=== PATIENT | female | born 1975 | race Caucasian/White ===

== ENCOUNTER 2023-04-30 08:00 | Emergency (ER) | payer BC, SELFPAY ==
[2023-04-30] MEDS ORDERED: MORPHINE 4 MG/ML SYR ONE (08:28)
[2023-04-30] MEDS ORDERED: ONDANSETRON 4 MG (ODT) TAB ONE (08:29)
--- NOTE | 2023-04-30 08:58 | RAD REPORT ---
EXAM DESCRIPTION: CT - Head C Spine Cap Wo Con - 04/30/2023 8:36 am CLINICAL HISTORY: Trauma, head and neck injury. Chest, abdomen and pelvis pain. TRAUMA COMPARISON: No comparisons TECHNIQUE: CT head without contrast. CT cervical spine without contrast with coronal and sagittal reformatted images. CT chest, abdomen and pelvis without contrast with coronal and sagittal reformatted images of the [facility] ne. All CT scans are performed using dose optimization technique as appropriate and may include automated exposure control or mA/KV adjustment according to patient size. FINDINGS: CT HEAD WITHOUT CONTRAST: No intracranial hemorrhage, hydrocephalus or extra-axial fluid collection. No areas of brain edema o r midline shift. The paranasal sinuses and mastoids are clear. The calvarium is intact. CT CERVICAL SPINE WITHOUT CONTRAST: No fracture or subluxation. Mild lower cervical degenerative changes. The prevertebral soft tissues a re normal in thickness. CT CHEST, ABDOMEN, PELVIS WITHOUT CONTRAST: NOTE: Lack of contrast is a significant limitation in the assessment of trauma related findings. Spec ifically, solid organ, vascular and bowel evaluation is significantly limited. The lungs are clear.No pneumothorax or pericardial/pleural fluid. No evidence of intra-abdominal visceral injury, free fluid or free air is seen within the above detai led limitations. No evidence of pelvic mass or hematoma. Moderate stool throughout the colon. No fractures. Mild lower lumbar degenerative changes. IMPRESSION: Negative for acute traumatic findings within the above detailed limitations.
--- NOTE | 2023-04-30 09:03 | RAD REPORT ---
EXAM DESCRIPTION: RAD - Ankle Right 3 View - 04/30/2023 8:45 am CLINICAL HISTORY: PAIN COMPARISON: No comparisons FINDINGS: Large plantar and tiny posterior calcaneal spur is present. No acute fracture seen.
--- NOTE | 2023-04-30 09:17 | ER ---
Nurse's Notes [facility] Name: Kanchan Phillips Age: 48 yrs Sex: Female : 1975 Arrival Date: 04/30/2023 Time: 08:00 Bed 18 Private MD: Diagnosis: Fall (on) (from) other stairs and steps;Sprain of ankle;Pain in left shoulder;Strain of other muscles, fascia and tendons at shoulder and upper arm level, left arm Presentation: 04/30 08:11 Chief complaint: Patient states: Fell down 12 steps this morning. C/o pain to R ankle/ ss foot. Coronavirus screen: Client denies travel out of the [place] in the last 14 days. Ebola Screen: Patient denies exposure to infectious person. Patient denies travel to an Ebola-affected area in the 21 days before illness onset. Initial Sepsis Screen: Does the patient meet any 2 criteria? No. Patient's initial sepsis screen is negative. Does the patient have a suspected source of infection? No. Patient's initial sepsis screen is negative. Risk Assessment: Do you want to hurt yourself or someone else? Patient reports no desire to harm self or others. Onset of symptoms was April 30, 2023. 08:11 Method Of Arrival: Ambulatory 08:11 Acuity: XIAO 3 ss Historical: - Allergies: 08:14 DPT; ss - Immunization history:: Client reports receiving the 2nd dose of the Covid vaccine. - Social history:: Smoking status: Patient denies any tobacco usage or history of. Screenin:28 [facility] ED Fall Risk Assessment (Adult) History of falling in the last 3 months, ld1 including since admission No falls in past 3 months (0 pts). Abuse screen: Denies threats or abuse. Denies injuries from another. Nutritional screening: No deficits noted. Tuberculosis screening: No symptoms or risk factors identified. Assessment: 09:28 General: Appears in no apparent distress. comfortable, Behavior is calm, cooperative, ld1 appropriate for age. Pain: Complains of pain in right foot and left foot Pain currently is 8 out of 10 on a pain scale. Quality of pain is described as throbbing. Neuro: Level of Consciousness is awake, alert, obeys commands, Oriented to person, place, time, situation. Cardiovascular: Capillary refill < 3 seconds Patient's skin is warm and dry. Respiratory: Airway is patent Respiratory effort is even, unlabored. GI: Abdomen is flat, non-distended. : No signs and/or symptoms were reported regarding the genitourinary system. EENT: No signs and/or symptoms were reported regarding the EENT system. Derm: No signs and/or symptoms reported regarding the dermatologic system. Musculoskeletal: No signs and/or symptoms reported regarding the musculoskeletal system. Vital Signs: 08:11 BP 125 / 76; Pulse 90; Resp 17; Temp 98.2(TE); Pulse Ox 100% on R/A; Weight 72.57 kg; ss Height 5 ft. 6 in. ; Pain 7/10; 09:28 BP 129 / 77; Pulse 74; Resp 18; Pulse Ox 100% on R/A; Pain 5/10; ld1 08:11 Body Mass Index 25.82 (72.57 kg, 167.64 cm) ss 08:11 Pain Scale: Adult ss 09:28 Pain Scale: Adult ld1 ED Course: 08:00 Patient arrived in ED. rg4 08:07 Joel Zuniga DO is Attending Physician. ms3 08:10 Nino Dotson, RN is Primary Nurse. rv 08:10 Ese Fry FNP-C is PHCP. snw 08:14 Triage completed. ss 08:14 Arm band placed on right wrist. ss 08:37 CT Traumagram (Head C Spine CAP wo con) In Process Unspecified. EDMS 08:45 Ankle Right 3 View XRAY In Process Unspecified. EDMS 09:28 Patient has correct armband on for positive identification. Placed in gown. Bed in low ld1 position. Call light in reach. Side rails up X2. Pulse ox on. NIBP on. Door closed. Noise minimized. 09:28 No provider procedures requiring assistance completed. Patient did not have IV access ld1 during this emergency room visit. Administered Medications: 08:23 Drug: morphine IM 4 mg Route: IM; Site: right deltoid; ld1 08:23 Drug: Ondansetron PO 4 mg Route: PO; ld1 09:25 Drug: Diazepam PO 10 mg Route: PO; ld1 Medication: 09:28 VIS not applicable for this client. ld1 Outcome: 09:16 Discharge ordered by . snw 09:28 Discharged to home ambulatory, with family. ld1 09:28 Condition: stable 09:28 Discharge instructions given to patient, family, Instructed on discharge instructions, follow up and referral plans. medication usage, Demonstrated understanding of instructions, follow-up care, medications, Prescriptions given X 2. 09:29 Patient left the ED. ld1 Signatures: Dispatcher [employer] EDMS Ese Fry, STOCK BROKER SUPERVISOR-C STOCK BROKER SUPERVISOR-Csnw Syl Martin, RN RN Cristina Kirby rg4 Nino Dotson, RN Joel Schuler, DO ms3 Nolvia Zuniga RN RN ld1
--- NOTE | 2023-04-30 09:17 | EDPHYS ---
Physician Documentation [facility] Name: Kanchan Phillips Age: 48 yrs Sex: Female : 1975 Arrival Date: 04/30/2023 Time: 08:00 Bed 18 Private MD: ED Physician Joel Zuniga HPI: 04/30 08:31 This 48 yrs old Female presents to ER via Ambulatory with complaints of Fall Injury. snw 08:31 Details of fall: The patient fell from a height, down approximately 12 stairs. Onset: snw The symptoms/episode began/occurred suddenly, just prior to arrival. Associated injuries: The patient sustained upper back injury, tenderness, left shoulder, right ankle. Severity of symptoms: At their worst the symptoms were moderate. The patient has not experienced similar symptoms in the past. It is unknown whether or not the patient has recently seen a physician. no LOC. Historical: - Allergies: 08:14 DPT; ss - Immunization history:: Client reports receiving the 2nd dose of the Covid vaccine. - Social history:: Smoking status: Patient denies any tobacco usage or history of. ROS: 08:32 Eyes: Negative for injury, pain, redness, and discharge, ENT: Negative for injury, snw pain, and discharge, Neck: Negative for injury, pain, and swelling, Cardiovascular: Negative for chest pain, palpitations, and edema, Respiratory: Negative for shortness of breath, cough, wheezing, and pleuritic chest pain, Abdomen/GI: Negative for abdominal pain, nausea, vomiting, diarrhea, and constipation. 08:32 : Negative for injury, bleeding, discharge, and swelling. 08:32 Skin: Negative for injury, rash, and discoloration, Neuro: Negative for headache, weakness, numbness, tingling, and seizure, Psych: Negative for depression, anxiety, suicide ideation, homicidal ideation, and hallucinations. 08:32 Constitutional: Positive for body aches. 08:32 Back: Positive for pain with movement, of the thoracic area. 08:32 MS/extremity: Positive for injury or acute deformity, pain, of the right ankle, left shoulder. Exam: 08:34 Constitutional: This is a well developed, well nourished patient who is awake, alert, snw and in no acute distress. Head/Face: Normocephalic, atraumatic. Eyes: Pupils equal round and reactive to light, extra-ocular motions intact. Lids and lashes normal. Conjunctiva and sclera are non-icteric and not injected. Cornea within normal limits. Periorbital areas with no swelling, redness, or edema. ENT: Nares patent. No nasal discharge, no septal abnormalities noted. Tympanic membranes are normal and external auditory canals are clear. Oropharynx with no redness, swelling, or masses, exudates, or evidence of obstruction, uvula midline. Mucous membranes moist. Neck: Trachea midline, no thyromegaly or masses palpated, and no cervical lymphadenopathy. Supple, full range of motion without nuchal rigidity, or vertebral point tenderness. No Meningismus. Chest/axilla: Normal chest wall appearance and motion. Nontender with no deformity. No lesions are appreciated. Cardiovascular: Regular rate and rhythm with a normal S1 and S2. No gallops, murmurs, or rubs. Normal PMI, no JVD. No pulse deficits. Respiratory: Lungs have equal breath sounds bilaterally, clear to auscultation and percussion. No rales, rhonchi or wheezes noted. No increased work of breathing, no retractions or nasal flaring. Abdomen/GI: Soft, non-tender, with normal bowel sounds. No distension or tympany. No guarding or rebound. No evidence of tenderness throughout. Back: mild upper thoracic spine tenderness. No costovertebral tenderness. Full range of motion. Skin: Warm, dry with normal turgor. Normal color with no rashes, no lesions, and no evidence of cellulitis. Neuro: Awake and alert, GCS 15, oriented to person, place, time, and situation. Cranial nerves II-XII grossly intact. Motor strength 5/5 in all extremities. Sensory grossly intact. Cerebellar exam normal. Normal gait. Psych: Awake, alert, with orientation to person, place and time. Behavior, mood, and affect are within normal limits. 08:34 Musculoskeletal/extremity: Extremities: grossly normal except: ROM: limited active range of motion due to pain, limited passive range of motion due to pain, in the right ankle, left shoulder, Circulation is intact in all extremities. Sensation intact. Vital Signs: 08:11 BP 125 / 76; Pulse 90; Resp 17; Temp 98.2(TE); Pulse Ox 100% on R/A; Weight 72.57 kg; ss Height 5 ft. 6 in. ; Pain 7/10; 09:28 BP 129 / 77; Pulse 74; Resp 18; Pulse Ox 100% on R/A; Pain 5/10; ld1 08:11 Body Mass Index 25.82 (72.57 kg, 167.64 cm) ss 08:11 Pain Scale: Adult ss 09:28 Pain Scale: Adult ld1 MDM: 08:10 Patient medically screened. snw 08:36 Differential diagnosis: closed head injury, contusion, fracture, multiple trauma, snw sprain, strain. Data reviewed: vital signs, nurses notes. 09:15 I considered the following discharge prescriptions or medication management in the [facility] emergency department Medications were administered in the Emergency Department. See MAR. Counseling: I had a detailed discussion with the patient and/or guardian regarding: the historical points, exam findings, and any diagnostic results supporting the discharge/admit diagnosis, radiology results, the need for outpatient follow up, for definitive care, to return to the emergency department if symptoms worsen or persist or if there are any questions or concerns that arise at home. Special discussion: Based on the history and exam findings, there is no indication for further emergent testing or inpatient evaluation. I discussed with the patient/guardian the need to see the primary care provider for further evaluation of the symptoms. 04/30 08:12 Order name: CT Traumagram (Head C Spine CAP wo con); Complete Time: 09:08 snw 04/30 08:32 Order name: Ankle Right 3 View XRAY; Complete Time: 09:08 snw 04/30 09:21 Order name: Walking boot; Complete Time: 09:25 snw Administered Medications: 08:23 Drug: morphine IM 4 mg Route: IM; Site: right deltoid; ld1 08:23 Drug: Ondansetron PO 4 mg Route: PO; ld1 09:25 Drug: Diazepam PO 10 mg Route: PO; ld1 Disposition: 15:39 Co-signature as Attending Physician, Joel Zuniga DO I was immediately available on-site ms3 in the Emergency Department for consultation in the care of the patient. Disposition Summary: 04/30/23 09:16 Discharge Ordered Location: Home snw Condition: Stable snw Diagnosis - Fall (on) (from) other stairs and steps snw - Sprain of ankle snw - Pain in left shoulder snw - Strain of other muscles, fascia and tendons at shoulder and upper arm level, left snw arm Followup: snw - With: Emergency Department - When: As needed - Reason: Worsening of condition Followup: snw - With: Private Physician - When: 2 - 3 days - Reason: Recheck today's complaints, Continuance of care, Re-evaluation by your physician Discharge Instructions: - Discharge Summary Sheet snw - Ankle Sprain snw - Joint Pain snw - Musculoskeletal Pain snw - RICE Therapy for Routine Care of Injuries snw - Shoulder Pain snw - Shoulder Range of Motion Exercises snw - How to Use Cold Therapy snw - Rehydration, Adult snw - Heat Therapy snw Forms: - Work release form snw - Medication Reconciliation Form snw - Thank You Letter snw - Antibiotic Education snw - Prescription Opioid Use snw - Patient Portal [email or web address] snw Prescriptions: - Tramadol 50 mg Oral Tablet - take 1 tablet by ORAL route every 8 hours as needed; 12 tablet; Refills: 0, snw Product Selection Permitted - orphenadrine citrate 100 mg Oral Tablet Sustained Release - take 1 tablet by ORAL route 2 times per day As needed; 20 tablet; Refills: 0, snw Product Selection Permitted Signatures: Dispatcher [employer] EDMS Ese Fry, CORRECTIONAL THERAPY TEACHER-C CORRECTIONAL THERAPY TEACHER-Csnw Syl Martin, RN RN ss Joel Zuniga, DO ms3 Nolvia Zuniga RN RN ld1
[2023-04-30] MEDS ORDERED: DIAZEPAM 5 MG TABLET ONE (09:29)
[2023-04-30 09:34] VITALS: TEMP 98.2; O2SAT 100
[2023-04-30 09:35] VITALS: BP 129/77
== END 2023-04-30 09:29 | disposition home or self-care (01) ==
LOC: ER 08:00
DX: S93.401A Sprain of unspecified ligament of right ankle, initial encounter (principal); S46.812A Strain of other muscles, fascia and tendons at shoulder and upper arm level, left arm, initial encounter; M25.512 Pain in left shoulder; W10.8XXA Fall (on) (from) other stairs and steps, initial encounter
CPT/HCPCS: 70450; 71250; 72125; 73610; 96372; 99284; Q0162